=== PATIENT | male | born 1970 | race Caucasian/White ===

== ENCOUNTER 2018-04-24 18:43 | Emergency (ER) | payer OTHER ==
[2018-04-24 19:20] VITALS: BP 118/75
--- NOTE | 2018-04-24 19:20 | EDPHY ---
H & P Time Seen by Provider: 04/24/18 18:54 HPI/ROS: CHIEF COMPLAINT: Right shoulder injury HISTORY OF PRESENT ILLNESS: 47-year-old male presents to the emergency department with injury to the right shoulder. The patient was snowboarding up at [place] and fell injuring his right shoulder around 11:00 a.m.. He was able [place]. He presents now to the emergency department for evaluation of his right shoulder injury. He was wearing a helmet. He did not hit his head or lose consciousness. Denies neck or back pain. Denies chest pain or difficulty breathing. Denies abdominal pain. Denies paresthesias in his upper or lower extremities. Patient is right-hand dominant. REVIEW OF SYSTEMS: Constitutional: No fever, no chills. Eyes: No double or blurry vision. ENT: No sore throat. Respiratory: No cough, no shortness of breath. Cardiac: No chest pain. Gastrointestinal: No abdominal pain, vomiting or diarrhea. Genitourinary: No dysuria. Musculoskeletal: No neck or back pain. Skin: No rashes. Neurological: No headache. Past Medical/Surgical History: left elbow surgery Social History: Lives in [place] Smoking Status: Never smoked Physical Exam: General Appearance: Alert, no distress. No visible signs of trauma to his head. Mentating normally and answering questions appropriately. Eyes: Pupils equal and round. Extraocular motions are all intact. ENT: Mouth: Mucous membranes moist. Respiratory: No wheezing, rhonchi, or rales, lungs are clear to auscultation. Cardiovascular: Regular rate and rhythm. Gastrointestinal: Abdomen is soft and nontender, no masses, no rebound or guarding, bowel sounds normal. Neurological: Alert and oriented x 3, cranial nerves II through XII grossly intact Skin: Warm and dry, no rashes. Musculoskeletal: Nontender to palpate along the cervical, thoracic or lumbar spine. Neck is supple. Extremities: Ecchymosis noted to the right clavicle area. He has palpable deformity over the midshaft of the clavicle. Mild tenderness with palpation. Limited range of motion of the right shoulder secondary to pain. No skin tenting. No abrasions or signs of open fracture. Full range of motion of the right elbow and right wrist. Full range of motion of the left upper extremity and lower extremities bilaterally. Psychiatric: Patient is oriented X 3, there is no agitation. Constitutional: Initial Vital Signs Temperature (C) 36.4 C 04/24/18 18:50 Heart Rate 68 04/24/18 18:50 Respiratory Rate 16 04/24/18 18:50 Blood Pressure 132/80 H 04/24/18 18:50 O2 Sat (%) 95 04/24/18 18:50 O2 Delivery Mode Room Air Allergies/Adverse Reactions: meperidine [From Demerol] Allergy (Verified 04/24/18 18:50) Home Medications: Medication Instructions Recorded FLUoxetine 04/24/18 Medical Decision Making - Diagnostics Imaging Results: X-rays of the right shoulder reveal midshaft clavicular fracture with displacement. Imaging: I viewed and interpreted images myself ED Course/Re-evaluation: 47-year-old male presents emergency department with right shoulder injury. X- rays reveal right midshaft clavicular fracture with displacement. Patient was placed in a sling and examined post application in good placement with normal [employer]. He was given orthopedic referral. He was instructed to follow up with orthopedic surgeon this week. Differential Diagnosis: Including but not limited to fracture, dislocation, contusion, sprain Departure - Departure Disposition: Home, Routine, Self-Care Clinical Impression: Right clavicle fracture Qualifiers: Encounter type: initial encounter Clavicle location: shaft Fracture type: closed Fracture alignment: displaced Qualified Code(s): S42.021A - Displaced fracture of shaft of right clavicle, initial encounter for closed fracture Condition: Good Instructions: Clavicle Fracture (ED) Additional Instructions: Sling for comfort and support. Ibuprofen 600 mg every 8 hr as needed for pain. Ice to help relieve swelling. Follow up with orthopedic surgeon this week to recheck. Return to the emergency department if you develop numbness or tingling in your fingers, feelings of shortness of breath, or if you feel worse in any way. Referrals: Nik Yang MD [Medical Doctor] - 1-2 days without fail (Orthopedic surgeon on-call)
== END 2018-04-24 19:55 | disposition home or self-care (01) ==
DX: S42.021A Displaced fracture of shaft of right clavicle, initial encounter for closed fracture (principal); V00.311A Fall from snowboard, initial encounter; Y93.23 Activity, snow (alpine) (downhill) skiing, snowboarding, sledding, tobogganing and snow tubing; Y92.838 Other recreation area as the place of occurrence of the external cause; Y99.9 Unspecified external cause status
CPT/HCPCS: A4565